=== PATIENT | male | born 1975 | race Caucasian/White ===

== ENCOUNTER → 2017-11-27 | Outpatient (CLI) | payer OTHER ==
--- NOTE | 2017-11-27 09:52 | US ---
EXAMINATION TYPE: US thyroid st tissue head/neck DATE OF EXAM: 11/27/2017 COMPARISON: NONE CLINICAL HISTORY: R22.1 patient feels like there is a lump in throat. GLAND SIZE: Right Lobe: 4.5 x 1.5 x 1.8 cm Overall Parenchyma: heterogenous Left Lobe: 4.1 x 1.5 x 1.8 cm Overall Parenchyma: heterogeneous Isthmus Thickness: 0.3 cm NODULES RIGHT: # of nodules measured on right: 1 1. 0.6 X 0.6 x 0.7 cm hypoechoic solid nodule at the lower pole with well-defined margins; . This nodule is wider than tall and shows intranodular vascularity. Prior size: No previous LEFT: # of nodules measured on left: 1 1. 1.2 X 0.8 x 1.1 cm hypoechoic solid nodule at the upper pole with well-defined margins; . This nodule is wider than tall and shows intranodular vascularity. Prior size: No previous ISTHMUS: # of nodules measured in the isthmus: 0 Bilateral neck scanned, no evidence of lymphadenopathy. IMPRESSION: 1. Heterogeneous thyroid tissue suggestive of thyroiditis. Bilateral thyroid nodules as discussed abo ve.
== END | disposition home or self-care (01) ==
LOC: RADUSMAIN 09:07
PROVIDERS: ATTEND Family Medicine
DX: E04.2 Nontoxic multinodular goiter (principal)
CPT/HCPCS: 76536

== ENCOUNTER → 2024-10-18 | Outpatient (CLI) | payer OTHER ==
[2024-10-18 09:27] LABS: Appearance,Urine Clear (Clear); Bilirubin,Urine Negative (Negative); Blood,Urine Negative (Negative); Color,Urine Colorless; Glucose,Urine (UA) Negative (Negative); Ketones,Urine Trace (Negative); Leukocyte Esterase,Urine Negative (Negative); Nitrite,Urine Negative (Negative); Protein,Urine Negative (Negative); Specific Gravity,Urine 1.015 (1.001-1.035); Urobilinogen,Urine <2.0 mg/dL (<2.0)
[2024-10-18 10:37] LABS: Basophils # (A) 0.06 X 10*3/uL (0.00-0.10); Basophils % (A) 0.8 %; Eosinophils # (A) 0.16 X 10*3/uL (0.04-0.35); Eosinophils % (A) 2.3 %; HGB 15.4 g/dL (13.0-17.0); Lymphocytes # (A) 2.06 X 10*3/uL (0.90-5.00); Lymphocytes % (A) 29.1 %; MCH 30.9 pg (27.0-32.0); MCHC 33.5 g/dL (32.0-37.0); MCV 92.2 FL (80.0-97.0); Mean Platelet Volume 10.6 FL (9.5-12.2); Monocytes # (A) 0.64 X 10*3/uL (0.20-1.00); NRBC Per 100 WBC 0 X 10*3/uL (0.00-0.01); Neutrophils # (A) 4.15 X 10*3/uL (1.80-7.70); Neutrophils % (A) 58.7 %; Platelet Count 309 X 10*3/uL (140-440); RBC 4.99 X 10*6/uL (4.40-5.60); RDW 12.8 % (11.5-14.5); WBC 7.08 X 10*3/uL (4.50-10.00)
[2024-10-18 10:59] LABS: % Iron Saturation 27.68 (15.00-50.00)
[2024-10-18 11:06] LABS: ALT 27 U/L (10-49); AST 22 U/L (14-35); Albumin 4.9 g/dL (3.8-4.9); Albumin/Globulin Ratio 2.13 Ratio (1.60-3.17); Alkaline Phosphatase 68 U/L (41-126); BUN/Creat Ratio 12.78 Ratio (12.00-20.00); Blood Urea Nitrogen 11.5 mg/dL (9.0-27.0); Calcium 9.9 mg/dL (8.7-10.3); Carbon Dioxide 25.3 mmol/L (21.6-31.8); Chloride 100 mmol/L (96-109); Chol/HDL Ratio 2.55 Ratio; Globulin 2.3 g/dL (1.6-3.3); Glucose 104 mg/dL (70-110); LDL Cholesterol,Calculated 94.5 mg/dL (0.0-131.0); Potassium 4.5 mmol/L (3.5-5.5); Sodium 138 mmol/L (135-145); Total Bilirubin 0.5 mg/dL (0.3-1.2); Total Protein 7.2 g/dL (6.2-8.2)
== END | disposition home or self-care (01) ==
LOC: LABWHC1 07:58
PROVIDERS: ATTEND Internal Medicine
DX: Z00.00 Encounter for general adult medical examination without abnormal findings (principal); Z12.5 Encounter for screening for malignant neoplasm of prostate; Z11.59 Encounter for screening for other viral diseases; Z22.7 Latent tuberculosis; R35.1 Nocturia; R53.83 Other fatigue
CPT/HCPCS: 86803; 80061; 80053; 84443; 82607; 82728; 82746; 83540; 83550; 85025; 81003; 86480; 36415; G0103

== ENCOUNTER → 2024-10-25 | Outpatient (CLI) | payer OTHER ==
--- NOTE | 2024-10-25 08:11 | US ---
EXAMINATION TYPE: US thyroid st tissue head/neck DATE OF EXAM: 10/25/2024 COMPARISON: US 2018 CLINICAL INDICATION: Male, 48 years old with history of E04.1 Thyroid nodule; TECHNIQUE: Grayscale and color Doppler imaging of the thyroid gland. FINDINGS: GLAND SIZE: Right Lobe: 5.5 x 1.5 x x 2.1 cm Overall Parenchyma: homogeneous Left Lobe: 4.9 x 1.4 x 2.0 cm Overall Parenchyma: homogeneous Isthmus Thickness: 0.2 cm NODULES RIGHT: # of nodules measured on right: 0 - nodule seen on previous exam not seen today LEFT: # of nodules measured on left: 1 1. 0.7 X 0.7 x 0.8 cm, mid lateral, Prior size: 1.2 x 0.8 x 1.1 cm TIRADS Score: 4 TIRADS Category 4: Composition: Solid or almost completely solid (2 points). Echogenicity: Hypoechoic (2 points). Shape: Wider than tall (0 points). Margin: Smooth (0 points). Echogenic foci: None or large comet-tail artifacts (0 points) Recommendation: If >1.5cm: FNA; If >1cm: Follow up at 1,2, 3,5 years ISTHMUS: # of nodules measured in the isthmus: 0 Bilateral neck scanned, no evidence of lymphadenopathy. IMPRESSION: Left thyroid nodule and meets criteria for follow-up. 2017 ACR TI-RADS LEVEL: TR-RADS 4 - Moderately Suspicious: Follow if > 1 cm, FNA if > 1.5 cm *Highest TI-RADS level nodule reported [email or web address] [facility], , 10/25/2024 8:09 AM
== END | disposition home or self-care (01) ==
LOC: RADUSWWP 07:44
PROVIDERS: ATTEND Internal Medicine
DX: E04.1 Nontoxic single thyroid nodule (principal)
CPT/HCPCS: 76536

== ENCOUNTER → 2024-12-06 | Outpatient (CLI) | payer OTHER ==
--- NOTE | 2024-12-06 15:21 | US ---
EXAMINATION TYPE: US kidneys/renal and bladder DATE OF EXAM: 12/06/2024 COMPARISON: CT abdomen and pelvis October 20, 2019 CLINICAL INDICATION: Male, 49 years old with history of R35.1 NOCTURIA N50.3 CYST OF EPIDIDYMIS; trou ble urinating TECHNIQUE: Grayscale imaging of the bilateral kidneys and urinary bladder: FINDINGS: EXAM MEASUREMENTS: Right Kidney: 10.9 x 5.6 x 4.5 cm Left Kidney: 10.1 x 5.2 x 4.6 cm Right Kidney: No hydronephrosis or masses seen Left Kidney: No hydronephrosis or masses seen Bladder: anechoic Bilateral Jets seen: yes There is no evidence for hydronephrosis at this point in time. No nephrolithiasis is seen. No jaleesa s are identified. The urinary bladder is anechoic. IMPRESSION: Unremarkable study. [facility], , 12/06/2024 3:19 PM
--- NOTE | 2024-12-06 15:23 | US ---
EXAMINATION TYPE: US scrotum with doppler. DATE OF EXAM: 12/06/2024 COMPARISON: NONE CLINICAL INDICATION: Male, 49 years old with history of R35.1 NOCTURIA N50.3 CYST OF EPIDIDYMIS; Epid idymal cyst. TECHNIQUE: Grayscale, color Doppler and spectral Doppler imaging of the scrotum. FINDINGS: EXAM MEASUREMENTS: TESTICLES: Right Testicle: 5.1 x 2.4 x 3.5 cm Left Testicle: 5.0 x 2.4 x 4.1 cm EPIDIDYMIS HEAD: Right Epididymis: .7 x 1.1 x .6 cm Left Epididymis: 1.0 x 1.1 x .7 cm anechoic area posterior 1.2 x .5 x .6 cm. Doppler performed to assess for testicular vascularity; good bilateral color flow and spectral wavefo david are seen. Presence of hydroceles: right Presence of varicoceles: no IMPRESSION: There is 1.2 x 0.5 x 0.6 cm thin-walled cyst in the region of the epididymal head otherwi se unremarkable study. [facility], , 12/06/2024 3:21 PM
== END | disposition home or self-care (01) ==
LOC: RADUSWWP 14:15
PROVIDERS: ATTEND Internal Medicine
DX: R35.1 Nocturia (principal); N50.3 Cyst of epididymis
CPT/HCPCS: 76770; 76870; 93975

== ENCOUNTER → 2025-01-20 | Outpatient (CLI) | payer OTHER ==
--- NOTE | 2025-01-21 07:53 | XR ---
EXAMINATION TYPE: XR chest 2V DATE OF EXAM: 01/20/2025 4:59 PM COMPARISON: None. CLINICAL INDICATION: Male, 49 years old with history of R07.9 CHEST PAIN, UNSPECIFIED, TECHNIQUE: XR chest 2V view(s) obtained. FINDINGS: The heart size is normal. The pulmonary vasculature is normal. The lungs are clear. IMPRESSION: 1. No acute pulmonary process. [facility], , 01/21/2025 7:50 AM
== END | disposition home or self-care (01) ==
LOC: RADXRMAIN 16:47
PROVIDERS: ATTEND Internal Medicine
DX: R07.9 Chest pain, unspecified (principal)
CPT/HCPCS: 71046